=== PATIENT | female | born 1995 | race Caucasian/White ===

== ENCOUNTER 2017-04-09 00:24 | Emergency (ER) | payer SELFPAY ==
[~2017-04-09] VITALS: Ht 152.4 cm; Wt 45.4 kg
[2017-04-09] MEDS ORDERED: LUMIGAN2.5 ML OU (00:32)
[2017-04-09] MEDS ORDERED: TIROSINT25 MCG PO (00:32)
[2017-04-09 01:13] LABS: URINE SOURCE CLEAN CATCH
[2017-04-09 01:16] LABS: URINE APPEARANCE CLEAR; URINE BILIRUBIN NEG (NEG); URINE BLOOD TRACE-INTACT (NEG); URINE GLUCOSE 50 MG/DL (NORM); URINE KETONE TRACE (NEG); URINE LEUKOCYTE ESTERASE TRACE (NEG); URINE NITRATE POS (NEG); URINE PROTEIN 2+ (NEG); URINE SPECIFIC GRAVITY 1.015 (1.003-1.035); URINE UROBILINOGEN >=8.0 MG/DL (NORM)
[2017-04-09 01:17] LABS: URINE COLOR ORANGE
[2017-04-09 01:18] LABS: MICRO INDICATED? YES
[2017-04-09 01:19] LABS: CULTURE INDICATED? NO; URINE BACTERIA NEG (NEG); URINE SQUAMOUS EPITHELIAL CELL FEW /[HPF]; URINE WBC 0-2 /[HPF] (0-5)
== END 2017-04-09 01:31 | disposition home or self-care (01) ==
LOC: SED 00:24
PROVIDERS: Student in an Organized Health Care Education/Training Program
DX: N39.0 Urinary tract infection, site not specified (principal); F17.200 Nicotine dependence, unspecified, uncomplicated
CPT/HCPCS: 81003; 84703; 99284